=== PATIENT | male | born 1995 | race Caucasian/White ===

== ENCOUNTER 2024-02-15 20:57 | Emergency (ER) | payer OTHER ==
[2024-02-15 21:19] VITALS: BP 123/74; PULSE 78; RESP 16; TEMP 97.6; BMI 19.1
[2024-02-15] MEDS: SODIUM CHLORIDE 1,000 ML IV STA ×2 (21:19→22:20)
[2024-02-15] MEDS: ONDANSETRON 4 MG/2 ML VIAL IVPUSH ONE (21:19)
[2024-02-15] MEDS ORDERED: ONDANSETRON 4 MG/2 ML VIAL ONE (21:20)
[2024-02-15 21:34] LABS: HEMATOCRIT 48.8 % (35.4-49); HEMOGLOBIN 16.8 G/dL (11.7-16.9); MCH 30.7 pg (25.7-33.7); MCHC 34.5 g/dl (32.0-35.9); MEAN CELL VOLUME 88.9 fl (80-96); MEAN PLT VOLUME 9.3 fl (7.5-11.1); PLATELET COUNT 217.1 10^3/uL (134-434); RBC 5.49 10^6/uL (4.00-5.60); RDW 14.7 % (11.9-15.9); WHITE BLOOD COUNT 11.8 10^3/uL (4.0-10.8)
[2024-02-15 21:48] LABS: ALBUMIN 4.9 g/dl (3.4-5.0); BILIRUBIN,TOTAL 1.8 mg/dl (0.2-1); POTASSIUM 3.7 mmol/L (3.5-5.1); TOT PROT 7.4 g/dl (6.4-8.2)
[2024-02-15 21:52] LABS: PLATELET ESTIMATE ADEQUATE
[2024-02-15] MEDS ORDERED: KETOROLAC TROMETHAMINE 30 MG/1 ML VIAL ONE (22:15)
[2024-02-15] MEDS: KETOROLAC TROMETHAMINE 30 MG/1 ML VIAL IVPUSH ONE ×2 (22:21→22:22)
== END 2024-02-15 23:40 | disposition home or self-care (01) ==
LOC: FER 20:57
PROC: 3E0303Z Introduction of Anti-inflammatory into Peripheral Vein, Open Approach (ICD-10-PCS; principal; 2024-02-15)
PROC: 3E030GC Introduction of Other Therapeutic Substance into Peripheral Vein, Open Approach (ICD-10-PCS; 2024-02-15)
PROC: 3E0337Z Introduction of Electrolytic and Water Balance Substance into Peripheral Vein, Percutaneous Approach (ICD-10-PCS; 2024-02-15)
PROC: 3E0337Z Introduction of Electrolytic and Water Balance Substance into Peripheral Vein, Percutaneous Approach (ICD-10-PCS; 2024-02-15)
DX: R10.817 Generalized abdominal tenderness (principal); R11.2 Nausea with vomiting, unspecified; K52.9 Noninfective gastroenteritis and colitis, unspecified
CPT/HCPCS: 36415; 80053; 85027; 96361; 96374; 96375; 99284-25